=== PATIENT | male | born 1985 | race Caucasian/White ===

== ENCOUNTER 2022-08-21 08:55 | Outpatient (REF) | payer MEDICAID, SELFPAY ==
--- NOTE | 2022-08-21 | PFT_ITS ---
Forced vital capacity 97%. FEV1 100%. FEV1/FVC ratio is 86. PHG08-03 114% and MVV is 103%. Post bronchodilator therapy, there is no change. Total lung capacity 97% and residual volume 93%. Diffusion capacity 84% CONCLUSION: Normal pulmonary function test, and there is no evidence of obstructive or restrictive pulmonary disorder. MD DEAN Lynn/NEREIDA / [id number]
== END 2022-08-21 08:56 | disposition home or self-care (01) ==
LOC: HO.RESP 08:55
PROVIDERS: PCP Internal Medicine; Visit Provider Internal Medicine
DX: Z00.00 Encounter for general adult medical examination without abnormal findings (principal); R06.00 Dyspnea, unspecified
CPT/HCPCS: 94060; 94727; 94729

== ENCOUNTER 2023-01-07 | Emergency (ER) | payer OTHER, MEDICAID, SELFPAY ==
[2023-01-07 00:13] VITALS: BP 133/86; PULSE 90; RESP 16; TEMP 36.6; O2SAT 98; BMI 29.2
--- NOTE | 2023-01-07 00:52 | ED_ITS ---
HPI - Abdominal Pain General Chief Complaint: Abdominal Pain Stated Complaint: stomach pain Time Seen by Provider: 01/07/23 00:47 Source: patient Mode of arrival: ambulatory Limitations: no limitations History of Present Illness HPI narrative: Patient nonspecific right sided pain for last 3 days no nausea no vomiting appetite good able to ambulate without any significant distress denies any constipation no fever or chills no urinary symptoms Related Data Allergies Allergy/AdvReac Type Severity Reaction Status Date / Time No Known Allergies Allergy Verified 01/07/23 00:12 [No Known Allergies*] Review of Systems Review of Systems Yes all other systems are reviewed and are negative [facility] Social History Social History Advance Directives: No Physical Exam ED Vital Signs: Vital Signs - 24 hr 01/07/23 00:13 Temperature 97.8 F Pulse Rate 90 Respiratory Rate 16 Blood Pressure 133/86 Pulse Oximetry 98 Oxygen Delivery Method Room Air BMI result Body Mass Index 29.2 Appearance: Alert. Oriented X3. No acute distress. Eyes: No pallor or icterus ENT: Pharynx normal. Oral Mucosa moist Neck: Normal inspection. Neck supple. CVS: Normal heart rate and rhythm. Pulses normal. Respiratory: No respiratory distress. Equal air entry bilateral, no wheezing/rales/rhonchi Abdomen: Soft , mild discomfort right abdomen no rebound tenderness or guarding Bowel sounds are present, no mass palpable, no CVA tenderness Skin: Skin warm and dry. Normal skin color. Normal skin turgor. Extremities: No lower extremity edema. No calf tenderness Neuro: Oriented X 3. Medical Decision Making Medical Decision Making [facility] Narrative: Patient nonspecific abdominal pain without any findings on abdominal examination CRP negative WBC count negative pain for 4 days with labs normal discharge patient home advised to follow with PCP unlikely any major pathology Differential Diagnosis Constipation/bowel pain/appendicitis/UTI Lab Data [facility] Lab Attestation statement: I reviewed the patient's lab results. 01/07/23 02:35 01/07/23 01:50 Labs: Lab Results 01/07/23 01/07/23 01/07/23 Range/Units 01:50 02:35 03:00 WBC 9.8 (4.8-10.8) X10*3/uL RBC 5.36 (4.60-5.80) X10*6/uL Hgb 16.3 (14.0-18.0) g/dl Hct 48.9 (42.0-52.0) % MCV 91.2 (80.0-98.0) fL MCH 30.4 (27.0-33.0) pg MCHC 33.3 (31.0-36.0) g/dl RDW 14.6 (11.0-16.0) % Plt Count 335 (160-400) X10*3/uL MPV 10.2 (9.4-12.4) fL Immature Gran % (Auto) 0.3 (0.0-0.4) % Neut % (Auto) 36.9 L (45-73) % Lymph % (Auto) 51.7 H (20-40) % Frontier % (Auto) 9.5 (2-11) % Eos % (Auto) 1.2 (0-4) % Baso % (Auto) 0.4 (0-2) % Lymph # (Auto) 5.1 H (1.2-4.9) X10*3/uL Frontier # (Auto) 0.9 (0.1-1.2) X10*3/uL Eos # (Auto) 0.1 (0.0-0.4) X10*3/uL Baso # (Auto) 0.0 (0.0-0.2) X10*3/uL Abs Immat Gran (auto) 0.03 (0.00-0.03) X10*3/uL Absolute Neuts (auto) 3.6 (2.0-8.3) x10*3/uL Absolute Nucleated RBC 0.000 (0.0-0.012) X10*3/uL Nucleated RBC % (auto) 0.0 (0.0-0.2) /100WBC Smear Tech's Comments VERIFIED Sodium 141 (135-145) mmol/L Potassium 4.8 (3.3-5.1) mmol/L Chloride 108 (96-108) mmol/L Carbon Dioxide 23 (22-29) mmol/L Anion Gap 15 (12-20) BUN 24 H (9-16) mg/dL Creatinine 0.98 (0.5-1.4) mg/dL Estim Creat Clear Calc 142.2 Estimated GFR > 60 Random Glucose 92 (60-115) mg/dL Calcium 9.6 (8.4-10.2) mg/dL C-Reactive Protein 0.33 (< or = 0.50) mg/dL Urine Color Yellow Urine Appearance Clear Urine pH 6.0 (5.0-9.0) Ur Specific [place] 1.025 (1.005-1.025) Urine Protein Negative (Neg-Trace) mg/dL Urine Glucose (UA) Negative (Negative) mg/dL Urine Ketones Negative (Negative) mg/dL Urine Blood Negative (Negative) Urine Nitrite Negative (Negative) Ur Leukocyte Esterase Negative (Negative) Discharge Plan Discharge Clinical Impression: Abdominal pain Patient Disposition: Home, Self-Care Discharge Date/Time: 01/07/23 04:02
[2023-01-07 06:03] LABS: Anion Gap 15 (12-20); Blood Urea Nitrogen 24 mg/dL (9-16); Carbon Dioxide 23 mmol/L (22-29); Chloride 108 mmol/L (96-108); Creatinine Clr Calc Pharmacy 142.2; Estimated Glomerular Filt Rate > 60; Potassium 4.8 mmol/L (3.3-5.1); Sodium 141 mmol/L (135-145)
[2023-01-07 06:04] LABS: C Reactive Protein 0.33 mg/dL (< or = 0.50); Calcium 9.6 mg/dL (8.4-10.2); Glucose Random 92 mg/dL (60-115)
[2023-01-07 06:07] LABS: Basophils Percent Auto 0.4 % (0-2); Eosinophils Absolute Auto 0.1 X10*3/uL (0.0-0.4); Eosinophils Percent Auto 1.2 % (0-4); Hematocrit 48.9 % (42.0-52.0); Hemoglobin 16.3 g/dl (14.0-18.0); Imm Gran Abs Auto 0.03 X10*3/uL (0.00-0.03); Imm Gran Pct Auto 0.3 % (0.0-0.4); Lymphocytes Absolute Auto 5.1 X10*3/uL (1.2-4.9); Lymphocytes Percent Auto 51.7 % (20-40); MANUAL DIFF FLAG SCAN; Mean Corpuscular HGB Conc 33.3 g/dl (31.0-36.0); Mean Corpuscular Hemoglobin 30.4 pg (27.0-33.0); Mean Corpuscular Volume 91.2 fL (80.0-98.0); Mean Platelet Volume 10.2 fL (9.4-12.4); Monocytes Absolute Auto 0.9 X10*3/uL (0.1-1.2); Monocytes Percent Auto 9.5 % (2-11); Neutrophils Absolute Auto 3.6 x10*3/uL (2.0-8.3); Neutrophils Percent Auto 36.9 % (45-73); Platelet Count 335 X10*3/uL (160-400); Red Blood Count 5.36 X10*6/uL (4.60-5.80); Red Cell Distribution Width 14.6 % (11.0-16.0); SCAN SMEAR FLAG 1; White Blood Count 9.8 X10*3/uL (4.8-10.8)
[2023-01-07 06:08] LABS: SLIDE REVIEW VERIFIED
[2023-01-07 06:15] LABS: Appearance Urine Clear; Color Urine Yellow; Glucose Urine UA Negative (Negative); Leukocyte Esterase Urine Negative (Negative); Nitrite Urine Negative (Negative); Specific Gravity - Urine 1.025 (1.005-1.025); Urine Blood Negative (Negative); Urine Ketones Negative (Negative); Urine Protein Negative (Neg-Trace)
== END 2023-01-07 04:02 | disposition home or self-care (01) ==
PROVIDERS: Emergency Provider Internal Medicine
DX: R10.9 Unspecified abdominal pain (principal)
CPT/HCPCS: 36415; 80048; 81003; 85025; 86140; 99281; 99283

== ENCOUNTER 2023-09-22 17:02 | Outpatient (REF) | payer OTHER, MEDICAID, SELFPAY | END 2023-09-22 17:03 | disposition home or self-care (01) | LOC: HO.HHCLNP 17:02 | PROVIDERS: Visit Provider Internal Medicine | DX: R10.13 Epigastric pain (principal) | CPT/HCPCS: 87338 ==

== ENCOUNTER 2025-09-26 16:26 | Outpatient (REF) | payer OTHER, SELFPAY ==
--- OUTSIDE RECORDS SUMMARY | 2025-09-26 11:15 | XMS_ITS | Encounter Summary ---
Author Organization [employer] Address [address] [place] [address] Care Team Providers Care Tea And Spice Supervisor Name Role Phone Beth Cobb MD Primary Care Provider + Encounter Details Date Type Department Care Team (Late st Contact Info) Description 09/26/2025 11:15 AM EST Office Visit [facility] MEDICINE [address] [place], [place] [phone] Tara Chisholm DO [address] [place], [place] [phone] Penile ulcer (Primary Dx); Foreskin fissure Social History Tobacco Use Types Packs/Day Years Used Date Smoking Tobacco: Never Passive Smoke Exposure: Never Smokeless Tobacco: Never Depression Answer Date Recorded Patient Health Questionnaire-9 Score 0 09/17/2023 Patient Health Questionnaire-9 Score 0 09/17/2023 Last PHQ-9: Questionnaire Data Not on file 1 11/17/2022 Housing Stability Answer Date Recorded What is your housing situation today? I have mary anne zambrano 09/17/[address] you li ve. Do you have problems with any of the following? None of the above 09/17/2023 Food Insecurity Answer Date Recorded Within the past 12 months, y ou worried that your food would run out before you got money to buy more: Never True 09/17/2023 Within the past 12 months,th e food you bought just didn't last and you didn't have enough money to get more: Never True 01/2023 Transportation Answer Date Recorded In the past 12 months, has l ack of transportation kept you from medical appts, meetings, work or from getting things needed for daily living? No 09/17/2023 Utilities Answer Date Recorded In the past 12 months, has t he electric, gas, oil or water company threatened to shut off services in your home? No 09/17/2023 Depression Answer Date Recorded Patient Health Questionnaire-2 Score 0 09/17/2023 Sex and Gender Information Value Date Recorded Sex Assigned at Male 09/14/2022 10:29 AM EDT Legal Sex Male 10:29 AM EDT Gender Identity Male 09/14/2022 10:29 AM EDT Sexual Orientation Straight 09/14/2022 10 :29 AM EDT documented as of this encounter Last Filed Vital Signs Vital Sign Reading Time Taken Comments Blood Pressure 112/76 09/26/2025 12:29 PM EST Pulse 79 09/26/2025 11:45 AM EST Temperature 36.8 C (98.3 F) 09/26/2025 11:45 AM EST Respiratory Rate 21 09/26/2025 11:45 AM EST Oxygen Saturation 96% 09/26/2025 11:45 AM EST Inhaled Oxygen Concentration - - Weight 115 kg (253 lb) 09/26/2025 11:45 AM EST Height 193 cm (6' 4 ) 09/26/2025 11:45 AM EST Body Mass Index 30.8 09/26/2025 11:45 AM EST documented in this encounter Progress Notes * Tara Chisholm, - 09/26/2025 11:15 AM EST SUBJECTIVE Miguel Gardner is a 40 y.o. male who presents for Sick Visit. He called a couple of days ago c/o a cut in his groin area with occasional pain and yellow discharge and was scheduled for evaluation. He says he has a cut on the tip of his penis which he noticed about a week ago. He says he has noticed yellow purulent drainage and redness around the area. He says that he has never had a cut likethis before. He says that he has itching sometimes. He denies any penile discharge. He denies any dysuria, hematuria, or urinary frequency. He is sexually active with single, long-time partner. No new sexual partners. He denies any chronic medical problems. Review of Systems Constitutional: Negative for activity change, appetite change, fever and unexpected weight change. Respiratory: Negative for cough and chest tightness. Cardiovascular: Negative for chest pain and palpitations. Gastrointestinal: Negative for abdominal pain, diarrhea, nausea and vomiting. Genitourinary: Positive for penile discharge and penile pain. Negative for difficulty urinating, dysuria and hematuria. Neurological: Negative for dizziness, weakness and headaches. Patient Active Problem List Diagnosis Knee pain Epigastric pain No Known Allergies OBJECTIVE Vitals: 09/26/25 1145 09/26/25 1229 BP: (!) 138/90 112/76 BP Location: Left arm Left arm Patient Position: Sitting Sitting BP Cuff Size: Adult Large adult Pulse: 79 Resp: 21 Temp: 98.3 ??F (36.8 ??C) TempSrc: Oral SpO2: 96% Weight: 253 lb (115 kg) Height: 6' 4 (1.93 m) Physical Exam Constitutional: General: He is not in acute distress. Appearance: Normal appearance. Cardiovascular: Rate and Rhythm: Normal rate and regular rhythm. Heart sounds: Normal heart sounds. No murmur heard. Pulmonary: Effort: Pulmonary effort is normal. Breath sounds: Normal breath sounds. No wheezing or rhonchi. Genitourinary: Penis: Lesions present. No discharge. Testes: Right: Tenderness or swelling not present. Left: Tenderness or swelling not present. Comments: ~1cm erythematous ulcer with well demarcated border at base of glans Several linear fissures over glans Lymphadenopathy: Lower Body: No right inguinal adenopathy. No left inguinal adenopathy. Neurological: General: No focal deficit present. Mental Status: He is alert and oriented to person, place, and time. Cranial Nerves: No cranial nerve deficit. Motor: No weakness. Gait: Gait normal. Psychiatric: Mood and Affect: Mood normal. Assessment/Plan Diagnoses and all orders for this visit: Penile ulcer New-onset painless ulcer, concerning for syphilis chancre -referred for STI/HIV testing -send herpes viral cx -send bacterial cx -advised contact C if sx change or worsen Foreskin fissure Several linear fissures of the penile glans -treat empirically for balanitis with diflucan once -trial clotrimazole cream prn sx relief -check basic labs with A1c -advised contact C if sx do not resolve, he agrees with plans --Follow-up with PCP as scheduled or sooner prn-- Current Outpatient Medications: clotrimazole (Lotrimin) 1 % cream, Apply topically if needed in the morning and at bedtime (penile glans rash) for up to 28 days., Disp: 30 g, Rfl: 1 famotidine (Pepcid) 20 MG tablet, Take 1 tablet (20 mg) by mouth 2 times daily., Disp: 60 tablet, Rfl: 0 fluconazole (Diflucan) 150 MG tablet, Take 1 tablet (150 mg) by mouth 1 (one) time for 1 dose., Disp: 1 tablet, Rfl: 0 Scribe Attestation: Ronak Coyne, am serving as a scribe to document services personally performed by Tara Campos, based on the patient's response to questions by provider and provider's statements to me. 09/26/25 1:33 PM Physicians Attestation: Tara Coyne DO, have reviewed the information by the scribe, Ronak Young, for accuracy and agree with its content. documented in this encounter Plan of Treatment Scheduled Orders Name Type Priority Associated Diagnoses Orde r Schedule T4, Free Lab Routine Penile ulcer Expected: 09/26/2025 (Approximate), Expires: 09/26/2026 Lipid Panel, Standard Lab Routine Penile ulcer Expected: 09/26/2025 (Approximate), Expires: 09/26/2026 TSH Lab Routine Penile ulcer Expected: 09/26/2025 (Approximate), Expires: 09/26/2026 Vitamin D, 25-Hydroxy, Total, Immunoassay Lab Routine Penile ulcer Expected: 09/26/2025 (Approximate), Expires: 09/26/2026 Hepatic Function Panel Lab Routine Penile ulcer Expected: 09/26/2025 (Approximate), Expires: 09/26/2026 Hemoglobin A1c Lab Routine Penile ulcer Expected: 09/26/2025 (Approximate), Expires: 09/26/2026 CBC Lab Routine Penile ulcer Expected: 09/26/2025, Expires: 09/26/2026 Basic Metabolic Panel Lab Routine Penile ulcer Expected: 09/26/2025 (Approximate), Expires: 09/26/2026 Hepatitis B surface antigen, EIA Lab Routine Penile ulcer Expected: 09/26/2025 (Approximate), Expires: 09/26/2026 Chlamydia/N. Gonorrhoeae RNA, TMA, Urogenitial Microbiology Routine Penile ulcer Ordered: 09/26/2025 HIV-1/2 Antigen and Antibodies, Fourth Generation, with Reflexes Lab Routine Penile ulcer Expected: 09/26/2025 (Approximate), Expires: 09/26/2026 Hepatitis C Antibody with Reflex to HCV, RNA, Quantitative, Real-Time PCR Lab Routine Penile ulcer Expected: 09/26/2025, Expires: 09/26/2026 RPR (Monitor) with Reflex to Titer Lab Routine Penile ulcer Expected: 09/26/2025, Expires: 09/26/2026 Hepatitis B Surface Antibody, Qualitative Lab Routine Penile ulcer Expected: 09/26/2025 (Approximate), Expires: 09/26/2026 Hepatitis A Antibody, Total Lab Routine Penile ulcer Expected: 09/26/2025 (Approximate), Expires: 09/26/2026 Hepatitis B Core Antibody, Total Lab Routine Penile ulcer Expected: 09/26/2025 (Approximate), Expires: 09/26/2026 Herpes Simplex Virus 1 and 2 (IgG), Type-Specific Antibodies Lab Routine Penile ulcer Expected: 09/26/2025 (Approximate), Expires: 09/26/2026 Herpes Simplex Virus Culture with Reflex Typing Microbiology Routine Penile ulcer Expected: 09/26/2025, Expires: 09/26/2026 Wound culture Microbiology Routine Penile ulcer Expected: 09/26/2025 (Approximate), Expires: 09/26/2026 Treponema Pallidum Antibody, Particle Agglutination Lab Routine Penile ulcer Expected: 09/26/2025 (Approximate), Expires: 09/26/2026 documented as of this encounter Visit Diagnoses Diagnosis Penile ulcer- Primary Other specified disorder of penis Foreskin fissure Other specified disorder of penis documented in this encounter Additional Health Concerns Assessment Noted Time PHQ-9 Depression Total Score: 0 09/17/20 23 11:00 AM EDT documented as of this encounter Care Teams Tea And Spice Supervisor Relationship Specialty Start Date End Date Beth Cobb MD [address] [place] [phone] PCP - General Family Medicine 08/31/16 documented as of this encounter
--- OUTSIDE RECORDS SUMMARY | 2025-09-26 19:04 | XMS_ITS | Encounter Summary ---
Author Organization [email or web address] Address [address] [place] [address] Care Team Providers Care Threading Machine Feeder Automatic Name Role Phone Beth Cobb MD Primary Care Provider + Reason for Visit * Reason Onset Date Comments Nurse Triage 09/24/2025 Encounter Details Date Type Department Care Team ([facility] st Contact Info) Description 09/24/2025 Telephone [facility] MEDICINE [address] [place], [place] [phone] Beth Cobb MD [address] [place], [place] [phone] Nurse Triage Social History Tobacco Use Types Packs/Day Years [...] AM EDT documented as of this encounter Miscellaneous Notes * Telephone Encounter - Delia Hutchison RN - 09/24/2025 3:48 PM EST Telephone call to the pt regarding the previous message . Pt states he has a cut in his private area . Pt is not sure the length . States he has had it for about a week . Pt is unsure how it happened . States the area is painful at times . Staes there is yellow drainage in the area . Denies odor to the area . States it is red around the area . States this is the first time it has happened . Denies fever . Pt states he works late today . States he will take the appt on at 1115am Bouchra Whitlock . Pt was advised of the [facility] hours . Pt was advised to follow up for any new ,or worsening symptoms . Pt verbalized understanding , and agrees with the plan. Protocol Used: Cuts and Lacerations (Adult) Protocol-Based Disposition: See in Office or Video Visit Today Positive Triage Questions: * Looks infected (e.g., spreading redness, pus) and no fever * Patient wants to be seen * All higher-acuity triage questions were negative * Telephone Encounter - Selvin Carcamo - 09/24/2025 2:40 PM EST Tc from pt reporting that he has a cut on his groin area and will like to see PCP. Contact pt at [phone] documented in this encounter Plan of Treatment Not on file documented as of this encounter Visit Diagnoses Not on filedocumented in this encounter Additional Health Concerns Assessment Noted Time PHQ-9 Depression Total Score: 0 09/17/20 23 11:00 AM EDT documented as of this encounter Care Teams Threading Machine Feeder Automatic Relationship Specialty Start Date End Date Beth Cobb MD [address] [place] [address] PCP - General Family Medicine 08/31/16 documented as of this encounter
--- OUTSIDE RECORDS SUMMARY | 2025-09-26 19:04 | XMS_ITS | Encounter Summary ---
Author Organization [employer] Address [address] [facility] [address] [place] [address] Care Team Providers Care Assistant Passenger Locomotive Engineer Name Role Phone Beth Cobb MD Primary Care Provider + Reason for Visit * Reason Onset Date Comments Nurse Triage 09/13/2023 Encounter Details Date Type Department Care Team ([facility] st Contact Info) Description 09/13/2023 Telephone [facility] MEDICINE [address], [place] [phone] Beth Cobb MD [address] [place], [place] [phone] Nurse Triage Social History Tobacco Use Types Packs/Day Years Used Date Smoking Tobacco: Never Assessed Depression Answer Date Recorded Patient Health Questionnaire-9 [...] encounter Miscellaneous Notes * Telephone Encounter - Elenita Vilchis RN - 09/13/2023 3:24 PM EDT Triage call with [employer] automotive mechanic [place] [id number] Pt reports upper abdominal pain for last several months which comes and goes. Just recently it has gotten more painful and Pt reports increased heart burn. Pt denies fever, vomiting, diarrhea, nausea. Pt does report pain comes and goes. Pt is advised to increase liquids, no soda/alcohol and to try tums/ maalox to see if that helps and Pt agrees. Apt with Dr. Catherinea11/3 @ 1045am. Insurance is verified as active prior to booking. Protocol Used: Abdominal Pain - Upper (Adult) Protocol-Based Disposition: See in Office or Video Visit within 2 Weeks Positive Triage Question: * Abdominal pain is a chronic symptom (recurrent or ongoing AND lasting > 4 weeks) * All higher-acuity triage questions were negative Care Advice Discussed: * Reassurance and Education - Stomach Pain * Antacid Medicine * Drink Clear Fluids * Diet * Reasons To Call Back - Severe pain present over 1 hour - Constant pain present over 2 hours - Moderate pains come and go for more than 24 hours - Mild pains come and go for more than 72 hours - You become worse * Telephone Encounter - Ignacia Maki - 09/13/2023 2:39 PM EDT Symptom: Abdominal Pain - Male Outcome: Talk to a nurse or provider within 15 minutes Reason: Walks bent over and severe pain now. The caller accepted this outcome Bruneian Speaker documented in this encounter Plan of Treatment Not on file documented as of this encounter Visit Diagnoses Not on filedocumented in this encounter Care Teams Assistant Passenger Locomotive Engineer Relationship Specialty Start Date End Date Beth Cobb MD [address] [place] [phone] PCP - General Family Medicine 08/31/16 documented as of this encounter
--- OUTSIDE RECORDS SUMMARY | 2025-09-26 19:04 | XMS_ITS | Clinical Summary ---
Author Organization [employer] Address [address] [facility] 7t [place] [address] Care Team Providers Care Agricultural Commodities Grader Name Role Phone Beth Cobb MD Primary Care Provider + Allergies No known active allergies Medications famotidine (Pepcid) 20 MG tabletIndicatio ns:Epigastric pain Take 1 tablet (20 mg) by mouth 2 times daily. 60 tablet 3 Active fluconazole (Diflucan) 150 MG tablet Take 1 tablet (150 mg) by mouth 1 (one) time for 1 dose. 1 tablet 5 09/26/20 25 Active clotrimazole (Lotrimin) 1 % cream Apply topically if needed in the morning and at bedtime (penile glans rash) for up to 28 days. 30 g 1 5 10/24/20 25 Active Active Problems Problem Noted Date Diagnosed Date Epigastric pain 09/17/2023 Assessment & Plan (09/17/2023 11:27 AM EDT): I advise patient to avoid NSAIDs, spicy and acid food, I advise to eat at the same time every day, I advise to elevate the head of the bed and take medications as prescribe Knee pain 04/12/2018 09/17/2023 Encounters Date Type Department Care Team Description 09/26/2025 11:15 AM EST Office Visit [facility] [address] [place] [address] Tara Chisholm DO Penile ulcer (Primary Dx); Foreskin fissure 09/26/2025 Travel 09/25/2025 Travel 09/24/2025 Telephone [facility] [address] [place] [address] Beth Cobb MD Nurse Triage from Last 3 Months Immunizations Immunization Administration Dates Next Due Influenza injectable quadriv alent preservative free 09/17/2023,09/21/2017,09/22/2015 Pfizer Covid-19 Vaccine 12+ 12/08/2023 Pfizer Covid-19 Vaccine 12+ Bivalent 01/04/2023 Social History Tobacco Use Types Packs/Day Years Used Date Smoking Tobacco: Never Passive Smoke Exposure: Never Smokeless Tobacco: Never Tobacco Cessation:Counseling Given: Not Answered Depression Answer Date Recorded Patient Health Questionnaire-9 [...] Orientation Straight 09/14/2022 10 :29 AM EDT Last Filed Vital Signs Vital Sign Reading [...] Mass Index 30.8 09/26/2025 11:45 AM EST Plan of Treatment Health Maintenance Due Date Last Done Comments HIV Screening 1987 Alcohol/Substance Use Screening 1999 Family Planning (PISQ) 2002 HPV Vaccines (1 - Male 3-dose series) 2002 Hepatitis C Screening 2005 DTaP/Tdap/Td Vaccines (1 - Tdap) 2006 Hepatitis B Vaccines (1 of 3 - 19+ 3-dose series) 2006 Depression Screening 09/17/2024 09/17/2023, 09/17/20 23 SDOH Screening 09/17/2024 09/17/2023 COVID-19 Vaccine ( season) 2025 12/08/2023, 01/04/2023, 04/23/2022, Additional history exists Influenza Vaccine (#1) 2025 , 09/21/2017, 09/22/2015 Disability Screening 09/25/2026 09/25/2025 Tobacco Screening 09/26/2026 09/26/2025 Lipid Panel 08/21/2027 08/21/2022 Zoster Vaccines (1 of 2) 2037 RSV Patients and Patients Aged 60 years or older (1 - 1-dose 75+ series) 2062 HIB Vaccines Aged Out No longer eligi ble based on patient's age to complete this topic Hepatitis A Vaccines Aged Out No long er eligible based on patient's age to complete this topic IPV Vaccines Aged Out No longer eligi ble based on patient's age to complete this topic Meningococcal B Vaccine Aged Out No l onger eligible based on patient's age to complete this topic Meningococcal Vaccine Aged Out No louie romero eligible based on patient's age to complete this topic Pneumococcal Vaccine: Pediatrics (0 to 5 Years) and At-Risk Patients (6 to 49) Years Aged Out No longer eligible based on patient's age to complete this topic RSV under 20 months Aged Out No longe r eligible based on patient's age to complete this topic Rotavirus Vaccines Aged Out No longer eligible based on patient's age to complete this topic Procedures Procedure Name Priority Date/Time Associated Diagnosis Comments LIPID PANEL, STANDARD Routine 08/21/2022 10:21 AM EDT from Last 3 Months or Most Recently Relevant to Health Maintenance Results * LIPID PANEL, STANDARD (08/21/2022 10:21 AM EDT) Chol/HDLC Ratio 3.6 <5.0 (calc) [facility] Cholesterol, Total 164 <200 mg/dL [facility] HDL Cholesterol 46 > OR = 40 mg/dL [facility] LDL Cholesterol 95 mg/dL (calc) [facility] Comment: Reference range: <100 Desirable range <100 mg/dL for primary prevention; <70 mg/dL for patients with CHD or diabetic patients with > or = 2 CHD risk factors. LDL-C is now calculated using the Isaac-Kerr calculation, which is a validated novel method providing better accuracy than the Friedewald equation in the estimation of LDL-C. Isaac SS et al. EARNEST. 2013;310(19): 5413-9242 (http://education.Orchestrate.com/faq/SPL439) Non-HDL Cholesterol 118 <130 mg/dL (calc) [facility] Comment: For patients with diabetes plus 1 major ASCVD risk factor, treating to a non-HDL-C goal of <100 mg/dL (LDL-C of <70 mg/dL) is considered a therapeutic option. Triglycerides 132 <150 mg/dL [facility] 08/21/2022 10:2 1 AM EDT us Beth Cobb MD LAB BLOOD ORDERABLES Fin al Result [facility] from Last 3 Months or Most Recently Relevant to Health Maintenance Insurance [address] [place] Care Teams Agricultural Commodities Grader Relationship Specialty Start Date End Date Beth Cobb MD [address] [place] [phone] PCP - General Family Medicine 08/31/16
--- OUTSIDE RECORDS SUMMARY | 2025-09-26 19:04 | XMS_ITS | Encounter Summary ---
Author Organization [employer] Address [address] [facility] 7t [place] [address] Care Team Providers Care Air Breaker Operator Name Role Phone Beth Cobb MD Primary Care Provider + Encounter Details Date Type Department Care Team (Latest Contact Info) Description 09/25/2025 Travel Social History Tobacco Use Types Packs/Day Years [...] AM EDT documented as of this encounter Plan of Treatment Not on file documented as of this encounter Visit Diagnoses Not on filedocumented in this encounter Additional Health Concerns Assessment Noted Time PHQ-9 Depression Total Score: 0 09/17/20 23 11:00 AM EDT documented as of this encounter Care Teams Air Breaker Operator Relationship Specialty Start Date End Date Beth Cobb MD [address] [place] [address] PCP - General Family Medicine 08/31/16 documented as of this encounter
--- OUTSIDE RECORDS SUMMARY | 2025-09-26 19:04 | XMS_ITS | Encounter Summary ---
Author Organization [employer] Address [address] [facility] [address]t [place] [address] Care Team Providers Care Software Configuration Engineer Name Role Phone Beth Cobb MD Primary Care Provider + Encounter Details Date Type Department Care Team (Latest Contact Info) Description 09/26/2025 Travel Social History Tobacco Use Types Packs/Day [...] documented as of this encounter Care Teams Software Configuration Engineer Relationship Specialty Start Date End Date Beth Cobb MD [address] [place] [address] PCP - General Family Medicine 08/31/16 documented as of this encounter
--- OUTSIDE RECORDS SUMMARY | 2025-09-26 19:04 | XMS_ITS | Data Portability ---
Author Organization [facility] [address] Address [address] [place] [address] Assessment No assessment recorded. Plan of Treatment Reminders Order Date Submit Date Provider Last Modified By Organization Details Last Modified Time Details Appointments None record ed. Lab None record ed. Referral None record ed. Procedures None record ed. Surgeries None record ed. Imaging None record ed. Medication Orders None record ed. Patient TargetsNo targets recorded. Patient InstructionsNo instructions recorded. Reason for Referral None Reported. Procedures Surgical History Date Name Laterality Status Provider Name and Address Organization Details Recorded Time OC-UDS Send Out Template NON DOT completed [facility]EL [facility] 10/16/2022 13:20:29 Imaging Results None recorded. Procedure Notes None recorded. Medical Equipment None Reported. Vitals None Recorded Social History None recorded. Functional Status None recorded. Mental Status None recorded. Family History Nothing Reported. Medical History No medical history recorded. Past Encounters Encounter ID Performer Location Encounter Start Date Encounter Closed Date Diagnosis/Indication Diagnosis SNOMED-CT Code Diagnosis ICD10 Code Diagnosis IMO Codes Diagnosis Note [id number] [facility] [address] [phone] 10/16/2022 12:45:14 10/16/2022 13:23:08 History and physical examination, pre-employment 428961055 Z02.1 Health Concerns Section Related Observation LastModified by Organization Detai ls LastModified Time None Recorded Concern Status LastModified by Organization Details LastModified Time None Recorded Advance Directives Directive None Recorded Payers Insurance Date Sequence Insurance Name Policy Number Policy Lora Covered Member ID Lora Member ID Guarantor Name 10/16/2022 APOLONIA Hoyt [id number] Miguel Hoyt
== END 2025-09-26 16:27 | disposition home or self-care (01) ==
LOC: HO.HHCLNP 16:26
PROVIDERS: Visit Provider Family Medicine
DX: N48.5 Ulcer of penis (principal)
CPT/HCPCS: 36415; 87070; 87077; 87186; 87205; 87255

== ENCOUNTER 2025-09-27 13:34 | Outpatient (REF) | payer OTHER, SELFPAY ==
--- OUTSIDE RECORDS SUMMARY | 2025-09-26 11:15 | XMS_ITS | Encounter Summary ---
Author Organization [employer] Address [address] [place] [address] Care Team Providers Care Shank Breaker Name Role Phone Beth Cobb MD Primary Care Provider + Encounter Details Date Type Department Care Team (Late st Contact Info) Description 09/26/2025 11:15 AM EST Office Visit [facility] MEDICINE [address] [place], [place] [phone] Tara Chisholm DO [address] [place], [place] [phone] Penile ulcer (Primary Dx); Foreskin fissure Social [...] Penile ulcer Expected: 09/26/2025 (Approximate), Expires: 09/26/2026 Basic Metabolic Panel Lab Routine [...] Expires: 09/26/2026 documented as of this encounter Procedures Procedure Name Priority Date/Time Associated Diagnosis Comments CBC Routine 09/27/2025 1:40 PM EST Penile ulcer HEMOGLOBIN A1C Routine 09/27/2025 1:40 PM EST Penile ulcer documented in this encounter Results * CBC (09/27/2025 1:40 PM EST) White Blood Count 7.8 4.8 - 10.8 X10*3/uL [facility] Red Blood Count 5.07 4.60 - 5.80 X10*6/uL [facility] Hemoglobin 15.3 14.0 - 18.0 g/dl [facility] Hematocrit 45.5 42.0 - 52.0 % [facility] Mean Corpuscular Volume 89.7 80.0 - 98.0 fL [facility] Mean Corpuscular Hemoglobin 30.2 27.0 - 33.0 pg [facility] Mean Corpuscular HGB Conc 33.6 31.0 - 36.0 g/dl [facility] Red Cell Distribution Width 15.6 11.0 - 16.0 % [facility] Platelet Count 305 160 - 400 X10*3/uL [facility] Mean Platelet Volume 11.1 9.4 - 12.4 fL [facility] NRBC Pct Auto 0.0 0.0 - 0.2 /100WBC [facility] NRBC Abs Auto 0.000 0.0 - 0.012 X10*3/uL [facility] Blood Venous blood specimen / Unknown 09/27/2025 1:40 PM EST 09/27/2025 4:07 PM EST us Tara Chisholm DO LAB BLOOD ORDERABLES Final R esult [facility] [address] [place] [phone] * Hemoglobin A1c (09/27/2025 1:40 PM EST) Hemoglobin A1c 5.8 <6.0 % [facility] Comment:Hemoglobin A1C Refer ence Range Adults: 4.8 - 6.0 % Non diabetic: < 6.0 % Goal: < 7.0 %Additional Action Suggested: > 8.0 %Note: Hemoglobin A1c results are invalid for patients with abnormal amounts of HbF. Blood transfusions may impact the HbA1c concentration in the patient sample. Estimated Average Glucose 120 mg/dL [facility] Comment:eAG = Estimated ave rage glucose which is %A1C expressed asaverage glucose, using the formula of the A0Q-SeprivuBlhwxvi Glucose study (ADAG), Diabetes Care, Vol.31,#8,2007 Blood Venous blood specimen / Unknown 09/27/2025 1:40 PM EST 09/27/2025 4:07 PM EST us Tara Chisholm DO LAB BLOOD ORDERABLES Final R esult [facility] [address] [place] [phone] documented in this encounter Visit Diagnoses Diagnosis Penile ulcer- Primary Other specified disorder of penis Foreskin fissure Other specified disorder of penis documented in this encounter Additional Health Concerns Assessment Noted Time PHQ-9 Depression Total Score: 0 09/17/20 23 11:00 AM EDT documented as of this encounter Care Teams Shank Breaker Relationship Specialty Start Date End Date Beth Cobb MD [address] [place] [phone] PCP - General Family Medicine 08/31/16 documented as of this encounter
[2025-09-27 16:26] LABS: Hematocrit 45.5 % (42.0-52.0); Hemoglobin 15.3 g/dl (14.0-18.0); Mean Corpuscular HGB Conc 33.6 g/dl (31.0-36.0); Mean Corpuscular Hemoglobin 30.2 pg (27.0-33.0); Mean Corpuscular Volume 89.7 fL (80.0-98.0); NRBC Abs Auto 0.000 X10*3/uL (0.0-0.012); NRBC Pct Auto 0.0 /100WBC (0.0-0.2); Platelet Count 305 X10*3/uL (160-400); Red Blood Count 5.07 X10*6/uL (4.60-5.80); White Blood Count 7.8 X10*3/uL (4.8-10.8)
--- OUTSIDE RECORDS SUMMARY | 2025-09-27 16:52 | XMS_ITS | Encounter Summary ---
Author Organization [employer] Address [address] [facility] 7t [place] [address] Care Team Providers Care Batch Weigher Name Role Phone Beth Cobb MD Primary Care Provider + Encounter Details Date Type Department Care Team (Late st Contact Info) Description 09/26/2025 Orders Only [facility] [address] [place], [place] [phone] Tara Chisholm DO [address] [place], [place] [phone] Social History Tobacco Use Types Packs/Day Years [...] on file documented as of this encounter Procedures Procedure Name Priority Date/Time Associated Diagnosis Comments GRAM STAIN RESULT (NON ORDERABLE) Routine 09/26/2025 12:56 PM EST documented in this encounter Results * Gram Stain Result (09/26/2025 12:56 PM EST) 09/26/2025 12:5 6 PM EST 09/26/2025 4:28 PM EST Comment:Penis Narrative [facility] - 09/27/2025 8:23 AM EST Gram stain results: 3+ polys No organisms seen Routine Culture No growth to date. Specimen Source: Penis us Tara Chisholm DO HISTORICAL/NON ORDERABLE LAB S Final Result [facility] [address] [place] [phone] documented in this encounter Visit Diagnoses Not on filedocumented in this encounter Additional Health Concerns Assessment Noted Time PHQ-9 Depression Total Score: 0 09/17/20 23 11:00 AM EDT documented as of this encounter Care Teams Batch Weigher Relationship Specialty Start Date End Date Beth Cobb MD [address] [place] [address] PCP - General Family Medicine 08/31/16 documented as of this encounter
--- OUTSIDE RECORDS SUMMARY | 2025-09-27 16:52 | XMS_ITS | Clinical Summary ---
Author Organization [employer] Address [address] [place] [address] [address]t [place] [address] Care Team Providers Care Chipper Feeder Name Role Phone Beth Cobb MD Primary Care Provider + Allergies No known active allergies Medications famotidine (Pepcid) 20 MG tabletIndicatio ns:Epigastric pain Take 1 tablet (20 mg) by mouth 2 times daily. 60 tablet 3 Active clotrimazole (Lotrimin) 1 % cream Apply topically if needed in the morning and at bedtime (penile glans rash) for up to 28 days. 30 g 1 5 10/24/20 25 Active fluconazole (Diflucan) 150 MG tablet Take 1 tablet (150 mg) by mouth 1 (one) time for 1 dose. 1 tablet 5 09/26/20 25 Active Problems Problem Noted Date Diagnosed Date [...] Description 09/26/2025 11:15 AM EST Office Visit [facility] [address] [place] [phone] Tara Chisholm DO Penile ulcer (Primary Dx); Foreskin fissure 09/26/2025 Orders Only [facility] [address] [place] [id number] KathrineTaraDO 09/26/2025 Travel 09/25/2025 Travel 09/24/2025 Telephone [facility] [address] [place] [address] Beth Cobb MD Nurse Triage from Last [...] Routine 09/27/2025 1:40 PM EST Penile ulcer GRAM STAIN RESULT (NON ORDERABLE) Routine 09/26/2025 12:56 PM EST LIPID PANEL, STANDARD Routine 08/21/2022 10:21 AM EDT from Last 3 Months or Most Recently Relevant to Health Maintenance Results * CBC (09/27/2025 1:40 PM EST) White Blood Count 7.8 4.8 - 10.8 X10*3/uL [facility] Red Blood Count 5.07 4.60 - 5.80 X10*6/uL [facility] Hemoglobin 15.3 14.0 - 18.0 g/dl [facility] Hematocrit 45.5 42.0 - 52.0 % [facility] Mean Corpuscular Volume 89.7 80.0 - 98.0 fL [facility] Mean Corpuscular Hemoglobin 30.2 27.0 - 33.0 pg [facility] Mean Corpuscular HGB Conc 33.6 31.0 - 36.0 g/dl [facility] Red Cell Distribution Width 15.6 11.0 - 16.0 % [facility] Platelet Count 305 160 - 400 X10*3/uL [facility] Mean Platelet Volume 11.1 9.4 - 12.4 fL [facility] NRBC Pct Auto 0.0 0.0 - 0.2 /100WBC [facility] NRBC Abs Auto 0.000 0.0 - 0.012 X10*3/uL [facility] Blood Venous blood specimen / Unknown 09/27/2025 1:40 PM EST 09/27/2025 4:07 PM EST Tara Walleralexia DO LAB BLOOD ORDERABLES Final R esult Performing Organization Address City/[facility]/ZIP Co de Phone Number [facility] [address] [place] [phone] * Hemoglobin A1c (09/27/2025 1:40 PM EST) Hemoglobin A1c 5.8 <6.0 % [facility] Comment:Hemoglobin A1C Refer ence Range Adults: 4.8 - 6.0 % Non diabetic: < 6.0 % Goal: < 7.0 %Additional Action Suggested: > 8.0 %Note: Hemoglobin A1c results are invalid for patients with abnormal amounts of HbF. Blood transfusions may impact the HbA1c concentration in the patient sample. Estimated Average Glucose 120 mg/dL [facility] Comment:eAG = Estimated ave rage glucose which is %A1C expressed asaverage glucose, using the formula of the Q9E-EltqoddMvsfkpy Glucose study (ADAG), Diabetes Care, Vol.31,#8,2007 Blood Venous blood specimen / Unknown 09/27/2025 1:40 PM EST 09/27/2025 4:07 PM EST Tara Kathrine DO LAB BLOOD ORDERABLES Final R esult Performing Organization Address City/[facility]/ZIP Co de Phone Number [facility] [address] [place] [phone] * Gram Stain Result (09/26/2025 12:56 PM EST) 09/26/2025 12:5 6 PM EST 09/26/2025 4:28 PM EST Comment:Penis Narrative [facility] - 09/27/2025 8:23 AM EST Gram stain results: 3+ polys No organisms seen Routine Culture No growth to date. Specimen Source: Penis us Tara hCisholm DO HISTORICAL/NON ORDERABLE LAB S Final Result Performing Organization Address [facility] Co de Phone Number [facility] [address] [place] [address] [phone] * LIPID PANEL, STANDARD (08/21/2022 10:21 AM [...] LDL-C. Isaac SS et al. EARNEST. 2013;310(19): 7255-3362 (http://education.2Win-Solutions.SOS Online Backup/faq/KBJ653) Non-HDL Cholesterol 118 <130 mg/dL (calc) [facility] Comment: For patients with diabetes plus 1 major ASCVD risk factor, treating to a non-HDL-C goal of <100 mg/dL (LDL-C of <70 mg/dL) is considered a therapeutic option. Triglycerides 132 <150 mg/dL [facility] 08/21/2022 10:2 1 AM EDT us Beth Cobb MD LAB BLOOD ORDERABLES Fin al Result Performing Organization Address City/[facility]/ZIP Co de Phone Number [facility] from Last 3 Months or Most Recently Relevant to Health Maintenance Insurance [facility] [place] [id number] Care Teams Chipper Feeder Relationship Specialty Start Date End Date Beth Cobb MD [address] [place] [phone] PCP - General Family Medicine 08/31/16
--- OUTSIDE RECORDS SUMMARY | 2025-09-27 16:52 | XMS_ITS | Encounter Summary ---
Author Organization [employer] Address [address] [facility] 7t [place] [address] Care Team Providers Care Door To Door Selling Agent Name Role Phone Beth Cobb MD Primary [...] documented as of this encounter Care Teams Door To Door Selling Agent Relationship Specialty Start Date End Date Beth Cobb MD [address] [place] [address] PCP - General Family Medicine 08/31/16 documented as of this encounter
--- OUTSIDE RECORDS SUMMARY | 2025-09-27 16:52 | XMS_ITS | Encounter Summary ---
Author Organization [employer] Address [address] [facility] 7t [place] [address] Care Team Providers Care Bread Dumper Name Role Phone Beth Cobb MD Primary [...] documented as of this encounter Care Teams Bread Dumper Relationship Specialty Start Date End Date Beth Cobb MD [address] [place] [address] PCP - General Family Medicine 08/31/16 documented as of this encounter
--- OUTSIDE RECORDS SUMMARY | 2025-09-27 16:52 | XMS_ITS | Encounter Summary ---
Author Organization [employer] Address [address] [facility] 7t [place] [address] Care Team Providers Care Pearl Digger Name Role Phone Beth Cobb MD Primary Care Provider + Reason for Visit * Reason Onset Date Comments Nurse Triage 09/24/2025 Encounter Details Date Type Department Care Team ([facility] st Contact Info) Description 09/24/2025 Telephone [facility] [address] [place], [place] [phone] Beth Cobb MD [address] [place], [place] [phone] Nurse Triage Social History Tobacco Use Types [...] like to see PCP. Contact pt at [phone] documented in this encounter Plan of Treatment Not on file documented as of this encounter Visit Diagnoses Not on filedocumented in this encounter Additional Health Concerns Assessment Noted Time PHQ-9 Depression Total Score: 0 09/17/20 23 11:00 AM EDT documented as of this encounter Care Teams Pearl Digger Relationship Specialty Start Date End Date Beth Cobb MD [address] [place] [address] PCP - General Family Medicine 08/31/16 documented as of this encounter
--- OUTSIDE RECORDS SUMMARY | 2025-09-27 16:52 | XMS_ITS | Encounter Summary ---
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 The caller accepted this outcome Belgian Speaker documented in this encounter Plan of Treatment Not on file documented as of this encounter Visit Diagnoses Not on filedocumented in this encounter Care Teams Swim Instructor Relationship Specialty Start Date End Date Beth Cobb MD [address] [place] [address] PCP - General Family Medicine 08/31/16 documented as of this encounter
[2025-09-27 16:54] LABS: Alanine Aminotransferase 64 U/L (0-40); Albumin Level 4.7 g/dL (3.5-5.0); Alkaline Phosphatase 76 U/L (39-117); Anion Gap 11 (12-20); Aspartate Amino Transferase 39 U/L (5-37); Blood Urea Nitrogen 22 mg/dL (9-16); Calcium 9.7 mg/dL (8.4-10.2); Carbon Dioxide 25 mmol/L (22-29); Chloride 106 mmol/L (96-108); Cholesterol 152 mg/dL (<200); Estimated Glomerular Filt Rate > 60; HDL Cholesterol 41 mg/dL (>40); Potassium 4.3 mmol/L (3.3-5.1); Sodium 138 mmol/L (135-145); Total Protein 8.2 g/dL (6.5-8.0); Triglycerides 74 mg/dL (<150)
[2025-09-27 17:10] LABS: Free T4 (Free Thyroxine) 1.03 ng/dL (0.71-1.85); Thyroid Stimulating Hormone 1.26 uIU/mL (0.32-4.0)
[2025-09-28 03:32] LABS: ~Hepatitis A Antibody IgG 0.54 S/CO (0.00-0.99)
[2025-09-28 04:11] LABS: HBS Num1 0.25 mIU/mL (0-7.99); HBc Num1 0.15 S/CO (0.00-0.79); HBsAGNum1 0.39 S/CO (0.00-0.99); HIV Num 1 0.12 S/CO (0.00-0.99); Hepatitis B Surface Antigen Negative (Negative); ~HepC Num1 0.15 S/CO (0.00-0.79); ~Hepatitis B Surface Antibody NONREACTIVE (Nonreactive); ~Hepatitis C Antibody Nonreactive (Nonreactive)
== END 2025-09-27 13:35 | disposition home or self-care (01) ==
LOC: HO.HHCL 13:34
PROVIDERS: PCP Internal Medicine; Visit Provider Family Medicine
DX: Z11.4 Encounter for screening for human immunodeficiency virus [HIV] (principal); Z20.6 Contact with and (suspected) exposure to human immunodeficiency virus [HIV]; Z13.29 Encounter for screening for other suspected endocrine disorder; Z13.21 Encounter for screening for nutritional disorder; Z13.1 Encounter for screening for diabetes mellitus; Z13.6 Encounter for screening for cardiovascular disorders; N48.5 Ulcer of penis
CPT/HCPCS: 36415; 80048; 80061; 80076; 82306; 83036; 84439; 84443; 85027; 86592; 86695; 86696; 86704; 86706; 86708; 86803; 87340; 87389